=== PATIENT | female | born 1995 ===

== ENCOUNTER 2018-05-10 13:50 | Emergency (ER) | payer SELFPAY ==
[2018-05-10 14:00] VITALS: BP 123/83; PULSE 90; RESP 15; TEMP 98.7; O2SAT 100
--- NOTE | 2018-05-10 14:05 | ED PDOC ---
Arrival/HPI - General Chief Complaint: Upper Extremity Problem/Injury Time Seen by Provider: 05/10/18 13:59 Historian: Patient - History of Present Illness Narrative History of Present Illness (Text): 05/10/18 14:23 22 year old female, with no significant past medical history, who presents to the ED requesting the removal of the control implant in her left arm. Patient states the implant was put in 1 year and 7 months ago in [place]. Patient has no complaints at this time. Patient denies any fever, chills, skin irritation, abdominal pain, n/v/d, or any other complaints. Patient is Tunisian speaking and declines spanish interpreter services, states she prefers significant other at bedside to translate. Past Medical History - Provider Review Nursing Documentation Reviewed: Yes - Psychiatric Hx Psychophysiologic Disorder: No Hx Substance Use: No Family/Social History - Physician Review Nursing Documentation Reviewed: Yes Family/Social History: Unknown Family HX Smoking Status: Never Smoked Hx Alcohol Use: No Hx Substance Use: No Allergies/Home Meds Allergies/Adverse Reactions: Allergies No Known Allergies Allergy (Verified 05/10/18 13:55) Home Medications: Home Meds Medication Instructions Recorded Confirmed RX: No Known Home Med 05/10/18 05/10/18 Review of Systems - Physician Review All systems were reviewed & negative as marked: Yes - Review of Systems Constitutional: Normal Eyes: Normal ENT: Normal Respiratory: Normal. absent: SOB, Cough Cardiovascular: Normal. absent: Chest Pain Gastrointestinal: Normal. absent: Abdominal Pain Genitourinary Female: Normal. absent: Dysuria, Frequency Musculoskeletal: Normal. absent: Back Pain, Neck Pain Skin: Normal. absent: Rash Neurological: Normal. absent: Headache, Dizziness Endocrine: Normal Hemo/Lymphatic: Normal Psychiatric: Normal Physical Exam - Physical Exam Narrative Physical Exam (Text): 05/10/18 14:27 Gen: NAD, cooperative, well appearing, non-toxic. Head: NCAT. EYES: PERRL, EOMI, conjunctiva clear, EARS: TMs clear MOUTH: moist MM, posterior pharynx without erythema or exudate, uvula midline. CV: (+) S1S2, RRR, no M/G/R LUNGS: CTA B/L, No W/R/R, good air movement Abd: Soft, NTTP, no guarding, rebound or rigidity. Neuro: AAO x 3, GCS 15, CN 2-12 intact, motor and sensory grossly intact, 5/5 muscle strength B/L UE's and LE's. EXT: (+)FROM, (+) palpable linear object in medial LUE. Skin is warm, dry and intact. No swelling or erythema overlying at injection site. Ulnar and radial pulses 2+. No cyanosis or edema. Vital Signs Reviewed: Yes Vital Signs Temp Pulse Resp BP Pulse Ox 05/10/18 13:55 98.7 F 90 15 123/83 100 Temperature: Afebrile Blood Pressure: Normal Pulse: Regular Respiratory Rate: Normal Appearance: Positive for: Well-Appearing, Non-Toxic, Comfortable Pain Distress: None Mental Status: Positive for: Alert and Oriented X 3 Medical Decision Making ED Course and Treatment: 05/10/18 14:29 Impression: 22 year old female presents to the ED requesting control implant removed. Plan: -- Disposition Progress Notes: Pt with normal exam. Patient informed removal of implant not a procedure for the ED; needs to f/u w/[facility]. Patient provided w/referral to [facility] health promotion officer, [facility]'s rust for removal of implanted BC device and for further evaluation re BC options. Patient agreeable w/POC and verbalized understanding. Patient provided w/verbal and written (in Tunisian) d/c instructions. - Scribe Statement The provider has reviewed the documentation as recorded by the Scribe Jazlyn Storm All medical record entries made by the Scribe were at my direction and personally dictated by me. I have reviewed the chart and agree that the record accurately reflects my personal performance of the history, physical exam, medical decision making, and the department course for this patient. I have also personally directed, reviewed, and agree with the discharge instructions and disposition. Disposition/Present on Arrival - Present on Arrival Any Indicators Present on Arrival: No History of DVT/PE: No History of Uncontrolled Diabetes: No Urinary Catheter: No History of Decub. Ulcer: No History Surgical Site Infection Following: None - Disposition Have Diagnosis and Disposition been Completed?: Yes Diagnosis: Normal exam Disposition: HOME/ ROUTINE Disposition Time: 14:45 Condition: GOOD Discharge Instructions (ExitCare): Choosing Control Print Language: UKRAINIAN Additional Instructions: BRANDEE BURNS, thank you for letting us take care of you today. Your provider was Allie Storey MD and you were treated for UPPER EXTREMITY PROBLEM, IMPLANT REMOVAL ON ARM. The emergency medical care you received today was directed at your acute symptoms. Return to the Emergency Department if your symptoms worsen, do not improve, or if you have any other problems. Please contact your doctor or call one of the physicians/clinics you have been referred to that are listed on the Patient Visit Information form that is included in your discharge packet. Bring any paperwork you were given at discharge with you along with any medications you are taking to your follow up visit. Our treatment cannot replace ongoing medical care by a primary care pro vider outside of the emergency department. Thank you for allowing the [facility] team to be part of your care today. Referrals: [facility] [Outside] - Follow up with primary [facility] [Outside] - [facility] up with [facility] [Outside] - Follow up with primary Edgar Garcia [Medical Doctor] - Follow up with primary Forms: [employer] (Tunisian)
== END 2018-05-10 14:47 | disposition home or self-care (01) ==
LOC: ED 13:50
DX: Z04.89 Encounter for examination and observation for other specified reasons (principal)